=== PATIENT | male | born 1985 | race Two or more races ===

== ENCOUNTER 2020-10-21 19:01 | Emergency (ER) | payer OTHER ==
[~2020-10-21] VITALS: Ht 177.8 cm; Wt 100.0 kg
[2020-10-21 20:10] VITALS: BP 122/71
[2020-10-21] MEDS ORDERED: HYDROcodone/APAP 5/325MG 1 TAB TABLET PO ONE (21:30)
--- NOTE | 2020-10-21 21:50 | PHYS DOC ---
General Adult EDM: Chief Complaint: ANKLE PROBLEM HPI: HPI: Patient is a 35 year old male who presents with jumped off the back of a trailer landing on his feet except for the right foot rolled inward. He states there is approximately a 10 foot drop. Patient has 3+ swelling to foot and ankle and no range of motion of the ankle and cannot wiggle his toes. Patient denies numbness or tingling, coolness of the extremity. (TOIBAS QUINONEZ APRN) Review of Systems: Review of Systems: Constitutional: Denies fever or chills. [] Eyes: Denies change in visual acuity. [] HENT: Denies nasal congestion or sore throat. [] Respiratory: Denies cough or shortness of breath. [] Cardiovascular: Denies chest pain. + Right ankle and foot edema. [] GI: Denies abdominal pain, nausea, vomiting, bloody stools or diarrhea. [] : Denies dysuria. [] Musculoskeletal: Denies back pain. + Right ankle joint pain. +Right foot joint pain and swelling [] Integument: Denies rash. [] Neurologic: Denies headache, focal weakness or sensory changes. [] Endocrine: Denies polyuria or polydipsia. [] Lymphatic: Denies swollen glands. [] Psychiatric: Denies depression or anxiety. [] (TOBIAS QUINONEZ APRN) Heart Score: C/O Chest Pain: No Risk Factors: Risk Factors: DM, Current or recent (<one month) smoker, HTN, HLP, family history of CAD, obesity. Risk Scores: Score 0 - 3: 2.5% MACE over next 6 weeks - Discharge Home Score 4 - 6: 20.3% MACE over next 6 weeks - Admit for Clinical Observation Score 7 - 10: 72.7% MACE over next 6 weeks - Early Invasive Strategies (TOBIAS QUINONEZ APRN) Current Medications: Current Medications Medications (Trade) Dose Ordered Sig/Ryder Start Time Stop Time Status Last Admin Dose Admin Acetaminophen/ Hydrocodone Bitart (Lortab 5/325) 1 tab 1X ONCE 10/21/20 21:30 10/21/20 21:31 DC (TOBIAS QUINONEZ APRN) Allergies: Allergies: Allergies Coded Allergies Type Severity Reaction Last Updated Verified No Known Drug Allergies 10/21/20 No (TOBIAS QUINONEZ APRN) Physical Exam: PE: Constitutional: Well developed, well nourished, no acute distress, non-toxic appearance. [] HENT: Normocephalic, atraumatic, bilateral external ears normal, oropharynx moist, no oral exudates, nose normal. [] Eyes: PERRLA, EOMI, conjunctiva normal, no discharge. [] Neck: Normal range of motion, no tenderness, supple, no stridor. [] Cardiovascular:Heart rate regular rhythm, no murmur [] Lungs & Thorax: Bilateral breath sounds clear to auscultation [] Abdomen: Bowel sounds normal, soft, no tenderness, no masses, no pulsatile masses. [] Skin: Warm, dry, no erythema, no rash. Bruising to lateral ankle and foot [] Back: No tenderness, no CVA tenderness. [] Extremities: Right lateral foot and ankle tenderness, no cyanosis, no clubbing, right ankle and toes ROM not intact, 3+ edema. [] Neurologic: Alert and oriented X 3, normal motor function, normal sensory function, no focal deficits noted. [] Psychologic: Affect normal, judgement normal, mood normal. [] (TOBIAS QUINONEZ APRN) EKG: EKG: [] (TOBIAS QUINONEZ APRN) Radiology/Procedures: Radiology/Procedures: [] Impression: [facility] [address] [place], [place] [id number] IMAGING REPORT Signed PATIENT: JESSICA COLEMAN ACCOUNT: [id number] : 1985 LOCATION: ER AGE: 35 SEX: M EXAM STATUS: REG ER ORD. PHYSICIAN: TOBIAS QUINONEZ APRN REASON: SWELLING, TENDERNESS PROCEDURE: ANKLE RIGHT 3V XR EXAM OF ANKLE_RIGHT 3VIEWS, XR FOOT_RIGHT 3 VIEWS DATE: 10/21/2020 9:23 PM INDICATION: SWELLING, TENDERNESS COMPARISON: None. FINDINGS: Bones: Acute displaced avulsion fracture at the base of the fifth metatarsal with intra-articular extension Joints: The ankle mortise is congruent. Lisfranc's joint is congruent. Miscellaneous: Lateral soft tissue swelling IMPRESSION: Acute displaced fifth metatarsal base avulsion fracture. Electronically signed by: Jazmine Hess MD (10/21/2020 9:49 PM) [facility] DICTATED and SIGNED BY: JAZMINE HESS MD DATE: 10/21/20 [id number] 0 (TOBIAS QUINONEZ APRN) Course & Med Decision Making: Course & Med Decision Making Pertinent Labs and Imaging studies reviewed. (See chart for details) See HPI. Alert and oriented x4. Ambulatory with a steady gait. Speaks in full complete sentences. Cannot ambulate on the right lower extremity. Pedal pulses strong and present. Cap refill less than 2 seconds. 2215: Patient eloped before he could be given the results, pain medications or splinting. (TOBIAS QUINONEZ APRN) Course & Med Decision Making I oversaw on the above date of service of this patient and discussed the care with the RESIDENT MANAGER. I agree with the findings, plan of care, and disposition as documented. Electronically signed, Aishwarya Chang DO (AISHWARYA CHANG DO) Brenda Disclaimer: Brenda Disclaimer: This electronic medical record was generated, in whole or in part, using a voice recognition dictation system. (TOBIAS QUINONEZ APRN) Departure Departure Impression: Primary Impression: Metatarsal bone fracture Qualified Codes: S92.344A - Nondisplaced fracture of fourth metatarsal bone, right foot, initial encounter for closed fracture Disposition: 07 LEFT AWOL/ELOPED Condition: STABLE Referrals: NO PCP (PCP) DEMETRI STUART MD, DEANNA M APRN October 21, 2020 21:50 AISHWARYA CHANG DO October 27, 2020 00:02
[2020-10-21] MEDS ORDERED: HYDR-2761 PO (22:03)
[2020-10-21] MEDS ORDERED: IBUP-1007 PO (22:03)
== END 2020-10-21 22:30 | disposition left against medical advice (07) ==
LOC: ER 19:01
DX: S92.344A Nondisplaced fracture of fourth metatarsal bone, right foot, initial encounter for closed fracture (principal); X50.9XXA Other and unspecified overexertion or strenuous movements or postures, initial encounter; Y93.89 Activity, other specified; Y92.89 Other specified places as the place of occurrence of the external cause; Y99.8 Other external cause status
CPT/HCPCS: 73610; 73630; 99284